=== PATIENT | female | born 1970 | race Caucasian/White ===

== ENCOUNTER 2022-09-13 08:24 | Day surgery (SDC) | payer OTHER ==
[2022-09-11 14:58] VITALS: BMI 24.3
[~2022-09-13 08:24] MED LIST: LACTATED RINGERS 1,000 ML IV SCH; LIDOCAINE 1% (10MG/ML) FOR IV START INTRADERMA PRN
[2022-09-13 09:00] VITALS: TEMP 98.2
[2022-09-13] MEDS ORDERED: PROPOFOL 10 MG/ML 20 ML VIAL IV ONE (09:30)
--- NOTE | 2022-09-13 09:53 | P.PCN ---
Date of Procedure: 09/13/22 Procedure(s) Performed: 5BRIEF HISTORY: Patient is a 51-year-old pleasant white female scheduled for an elective colonoscopy as a part of screening for colon cancer. PROCEDURE PERFORMED: Colonoscopy with snare polypectomy. PREOPERATIVE DIAGNOSIS: Screening for colon cancer. IV sedation per Anesthesia. PROCEDURE: After informed consent was obtained, the patient, was brought into the endoscopy unit. IV sedation was administered by Anesthesia under continuous monitoring. Digital rectal examination was normal. Initially the Olympus CF-160 flexible video colonoscope was then inserted in the rectum, gradually advanced into the cecum without any difficulty. Careful examination was performed as the scope was gradually being withdrawn. Ileocecal valve and the appendiceal orifice were visualized and appeared normal. Prep was excellent. Mucosa of the cecum, ascending colon, transverse colon, appeared normal. In the descending colon at 50 cm from the anal was there was a 1.5 cm in length with a polyp removed by snare polypectomy. Scattered left-sided diverticulosis seen. Rest of the descending colon, sigmoid colon, and rectum appeared normal. Retroflexion was performed in the rectum and no lesions were seen. The patient tolerated the procedure well. IMPRESSION: 1.5 cm pedunculated proximal descending colon polyp at 50 cm from the anal verge status post polypectomy Scattered sigmoid diverticulosis RECOMMENDATIONS: Findings of this examination were discussed with the patient well as her family. She was advised to follow with the biopsy. If the biopsy reveals adenoma she can have a repeat colonoscopy in 3 years..
[2022-09-13 09:59] VITALS: RESP 16
[2022-09-13 10:16] VITALS: BP 110/66; PULSE 62
== END 2022-09-13 10:46 | disposition home or self-care (01) ==
LOC: ORWHC2ENDO 08:24
PROVIDERS: ATTEND Internal Medicine Gastroenterology
DX: Z12.11 Encounter for screening for malignant neoplasm of colon (principal); D12.4 Benign neoplasm of descending colon; K57.30 Diverticulosis of large intestine without perforation or abscess without bleeding; E78.5 Hyperlipidemia, unspecified; Z79.899 Other long term (current) drug therapy
CPT/HCPCS: 45385; 81025; 88305; J2704

== ENCOUNTER → 2022-11-03 | Outpatient (CLI) | payer OTHER ==
--- NOTE | 2022-11-08 08:42 | MM ---
Reason for Exam: Screening (asymptomatic). Last mammogram was performed 11 year(s) and 10 month(s) ago. Patient History: Menarche at age 10. First Full-Term at age 27. Currently using Hormonal Contraceptives, starting at age 44. Risk Values: Kaity 5 year model risk: 1.2%. NCI Lifetime model risk: 9.4%. Prior Study Comparison: 12/27/2010 Bilateral Screening Mammogram, [facility]. Tissue Density: The breast tissue is heterogeneously dense. This may lower the sensitivity of mammography. Findings: Analyzed By CAD. No suspicious group of microcalcifications within either breast. No architectural distortion identified. There is an asymmetry demonstrated within the left breast centrally posterior depth slightly medially. Additional asymmetry demonstrated within the lateral right breast on the CC view at middle depth. Additional asymmetry demonstrated within the medial right breast only in the CC view at middle depth. Additional asymmetry demonstrated within the anterior right breast on the MLO view slightly inferior. Final asymmetry is demonstrated within the right breast on the MLO view along the posterior nipple line at posterior depth. Overall Assessment: Incomplete: need additional imaging evaluation, BI-RAD 0 Management: Diagnostic Mammogram of both breasts. A clinical breast exam by your physician is recommended on an annual basis and results should be correlated with mammographic findings. [facility] will attempt to contact patient to return for supplemental views and ultrasound if indicated. Electronically signed and approved by: Guille Michele D.O.
== END | disposition home or self-care (01) ==
LOC: RADMAMWWP 09:13
PROVIDERS: ATTEND Family Medicine
DX: Z12.31 Encounter for screening mammogram for malignant neoplasm of breast (principal)
CPT/HCPCS: 77067

== ENCOUNTER → 2022-11-09 | Outpatient (CLI) | payer OTHER ==
--- NOTE | 2022-11-09 09:55 | MM ---
Reason for Exam: Additional evaluation requested from abnormal screening. Last screening mammogram was performed less than 1 month ago. Patient History: Menarche at age 10. First Full-Term at age 27. Currently using Hormonal Contraceptives, starting at age 44. Risk Values: Kaity 5 year model risk: 1.2%. NCI Lifetime model risk: 9.4%. Prior Study Comparison: 12/27/2010 Bilateral Screening Mammogram, [facility]. 11/03/2022 Bilateral MG screening mammo w CAD, [facility]. Tissue Density: The breast tissue is heterogeneously dense. This may lower the sensitivity of mammography. Findings: Analyzed By CAD. Right: 2 areas of circumscribed nodularity measuring up to 1.0 cm, one inner aspect of the right breast middle depth and one laterally in the middle to posterior depth. Both located superiorly on the true lateral view. Suspect underlying cysts. Further ultrasound evaluation recommended. Left: No persisting abnormality is identified. Overall Assessment: Incomplete: need additional imaging evaluation, BI-RAD 0 Management: Diagnostic Breast Ultrasound of the right breast. Superior half. Electronically signed and approved by: Rubio Dunham M.D. Radiologist
--- NOTE | 2022-11-09 10:58 | USB ---
Reason for Exam: Additional evaluation requested from abnormal screening. Patient History: Menarche at age 10. First Full-Term at age 27. Currently using Hormonal Contraceptives, starting at age 44. Risk Values: Kaity 5 year model risk: 1.2%. NCI Lifetime model risk: 9.4%. Technique: Method: Targeted. Prior Study Comparison: 12/27/2010 Bilateral Screening Mammogram, [facility]. 11/03/2022 Bilateral MG screening mammo w CAD, [facility]. Findings: The upper section of the breast of the right breast, the axilla of the right breast and the retroareolar of the right breast were scanned. Targeted ultrasound right breast superior half from 9:00 to 3:00 including the subareolar region and axilla. At the 10:00 position, 5 cm from the nipple, there is a 7 x 5 x 4 mm cyst. At the 12:00 position, 2 cm from the nipple, there is a 7 x 5 x 2 mm cyst. Both of these are probable mammographic correlates. Subareolar duct ectasia is noted. No axillary lymphadenopathy or other solid/cystic lesion. Overall Assessment: Probably benign, BI-RAD 3 Management: Diagnostic Mammogram of the right breast in 6 months. A clinical breast exam by your physician is recommended on an annual basis and results should be correlated with mammographic findings. This exam should not preclude additional follow-up of suspicious palpable abnormalities. Results were given to the patient verbally at the time of exam. Electronically signed and approved by: Rubio Dunham M.D. Radiologist
== END | disposition home or self-care (01) ==
LOC: RADMAMWWP 08:56
PROVIDERS: ATTEND Family Medicine
DX: N60.01 Solitary cyst of right breast (principal); N60.41 Mammary duct ectasia of right breast
CPT/HCPCS: 77062; 77066

== ENCOUNTER → 2023-05-25 | Outpatient (CLI) | payer OTHER ==
--- NOTE | 2023-05-25 08:45 | MM ---
Reason for Exam: Follow-up at short interval from prior study. Last screening mammogram was performed 7 month(s) ago. Patient History: Menarche at age 10. First Full-Term at age 27. Postmenopausal. Hormonal Contraceptives, starting at age 44. Risk Values: Kaity 5 year model risk: 1.3%. NCI Lifetime model risk: 9.3%. Prior Study Comparison: 12/27/2010 Bilateral Screening Mammogram, [facility]. 11/03/2022 Bilateral MG screening mammo w CAD, [facility]. 11/09/2022 Bilateral MG 3D work up w/cad [facility], [facility]. Tissue Density: Right: The breast tissue is heterogeneously dense. This may lower the sensitivity of mammography. Findings: Analyzed By CAD. Stable exam/fibrotic tissue with right breast cyst seen on prior. No new suspicious masses, calcifications or distortions. Overall Assessment: Benign, BI-RAD 2 Management: Screening Mammogram of both breasts in 1 year. Results were given to the patient verbally at the time of exam. Patient should continue monthly self-breast exams. A clinical breast exam by your physician is recommended on an annual basis. This exam should not preclude additional follow-up of suspicious palpable abnormalities. Note on Kaity scores and lifetime risk: 1. A Kaity score greater than 3% is considered moderate risk. If this is the case, consider specialist referral to assess eligibility for a risk reducing agent. 2. If overall lifetime risk for the development of breast cancer is 20% or higher, the patient may qualify for future screening with alternating mammogram and breast MRI. Electronically signed and approved by: Samson Anna DO
== END | disposition home or self-care (01) ==
LOC: RADMAMWWP 07:29
PROVIDERS: ATTEND Family Medicine
DX: R92.331 Mammographic heterogeneous density, right breast (principal); Z78.0 Asymptomatic menopausal state
CPT/HCPCS: 77061; 77065

== ENCOUNTER → 2024-01-04 | Outpatient (CLI) | payer OTHER ==
--- NOTE | 2024-01-04 08:56 | XR ---
EXAMINATION TYPE: XR KUB DATE OF EXAM: 01/04/2024 8:38 AM CLINICAL INDICATION:Female, 53 years old with history of R10.84 GENERALIZED ABDOMINAL PAIN; COMPARISON: None. TECHNIQUE: One radiographic view of the abdomen was obtained. FINDINGS: The bowel gas pattern is nonspecific without dilated loops of small or large bowel. . Fecal material and gas are demonstrated throughout the colon and rectum. There is no evidence for organomegaly or pneumoperitoneum. The osseous structures are intact. No ab normal calcifications are present. IUD is present. IMPRESSION: Nonspecific bowel gas pattern without radiographic evidence for acute process.
== END | disposition home or self-care (01) ==
LOC: RADXRMAIN 08:20
PROVIDERS: ATTEND Family Medicine
DX: R10.84 Generalized abdominal pain (principal)
CPT/HCPCS: 74018

== ENCOUNTER → 2024-01-04 | Outpatient (CLI) | payer OTHER ==
[2024-01-04 10:21] LABS: Basophils # (A) 0.05 X 10*3/uL (0.00-0.10); Eosinophils # (A) 0.08 X 10*3/uL (0.04-0.35); Eosinophils % (A) 1.6 %; HCT 42.9 % (37.2-46.3); HGB 14.1 g/dL (12.0-15.0); Lymphocytes # (A) 1.75 X 10*3/uL (0.90-5.00); Lymphocytes % (A) 34.9 %; MCH 30.1 pg (27.0-32.0); MCHC 32.9 g/dL (32.0-37.0); MCV 91.7 FL (80.0-97.0); Mean Platelet Volume 10.4 FL (9.5-12.2); NRBC Per 100 WBC 0 X 10*3/uL (0.00-0.01); Neutrophils # (A) 2.62 X 10*3/uL (1.80-7.70); Neutrophils % (A) 52.3 %; Platelet Count 275 X 10*3/uL (140-440); RBC 4.68 X 10*6/uL (4.10-5.20); RDW 12.7 % (11.5-14.5); WBC 5.01 X 10*3/uL (4.50-10.00)
[2024-01-04 15:26] LABS: ALT 24 U/L (8-44); AST 21 U/L (13-35); Albumin 4.4 g/dL (3.8-4.9); Albumin/Globulin Ratio 1.91 Ratio (1.60-3.17); Alkaline Phosphatase 72 U/L (41-126); Blood Urea Nitrogen 12.6 mg/dL (9.0-27.0); Calcium 9.6 mg/dL (8.7-10.3); Carbon Dioxide 26.7 mmol/L (21.6-31.8); Chloride 106 mmol/L (96-109); Chol/HDL Ratio 4.74 Ratio; Globulin 2.3 g/dL (1.6-3.3); Glucose 107 mg/dL (70-110); Potassium 4.7 mmol/L (3.5-5.5); Sodium 142 mmol/L (135-145); Total Bilirubin 0.6 mg/dL (0.3-1.2); Total Protein 6.7 g/dL (6.2-8.2); VLDL Calculation 15.58 mg/dL (5.00-40.00)
== END | disposition home or self-care (01) ==
LOC: LABWHC1 07:39
DX: Z00.00 Encounter for general adult medical examination without abnormal findings (principal); E78.5 Hyperlipidemia, unspecified
CPT/HCPCS: 36415; 80053; 80061; 85025

== ENCOUNTER → 2024-11-06 | Outpatient (CLI) | payer OTHER ==
--- NOTE | 2024-11-06 09:48 | US ---
EXAMINATION TYPE: US abdomen complete DATE OF EXAM: 11/06/2024 COMPARISON: NONE CLINICAL INDICATION: Female, 53 years old with history of R74.8 ABNORMAL LEVELS OTHER SERUM ENZYMES; Abdominal pain x a couple years intermittently. TECHNIQUE: Grayscale and color Doppler imaging of the right upper quadrant. FINDINGS: EXAM MEASUREMENTS: Liver Length: 14.6 cm Gallbladder Wall: 0.16 cm CBD: 0.53 cm, color Doppler imaging was utilized to isolate the common bile duct for measurement. Right Kidney: 9.8 x 5.4 x 4.0 cm [employer]MENT [employer]ER NOTES: Exam is limited due to gas Pancreas: Portions seen appear wnl Liver: *Appears very coarse Gallbladder: Multiple hyperechoic areas seen in the gallbladder. *Largest measures 0.5 x 0.7 x 0.8 cm. It was difficult to tell if the areas moved, but they appeared not to move. Evidence for sonographic Goff's sign: No CBD: Appears wnl Right Kidney: No hydronephrosis or masses seen. Lower pole evaluation was limited due to gas. IMPRESSION: 1. Adherent gallstones versus multiple polyps in the gallbladder wall. Six-month follow-up recommend ed for stability. 2. Hepatocellular disease correlate with serum markers. [facility], , 11/06/2024 9:45 AM
== END | disposition home or self-care (01) ==
LOC: RADUSWWP 07:58
PROVIDERS: ATTEND Family Medicine
DX: K76.9 Liver disease, unspecified (principal)
CPT/HCPCS: 76705